=== PATIENT | female | born 1955 | race African-American/Black ===

== ENCOUNTER 2017-09-26 11:46 | Emergency (ER) | payer OTHER ==
[~2017-09-26] VITALS: Ht 162.6 cm; Wt 94.6 kg
[2017-09-26 11:47] VITALS: TEMP 36.5
[2017-09-26] MEDS ORDERED: HYDROmorphone INJ 1 MG/ML SYR IV STA ×2 (12:05→14:57)
[2017-09-26 12:12] VITALS: O2SAT 96; Ht 162.6 cm; Wt 94.6 kg
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
[2017-09-26 12:28] LABS: BASO % 0.2 %; BASO ABS # 0.02 K/uL (0-0.2); EOS % 0.5 %; EOS ABS # 0.05 K/uL (0-0.5); HEMATOCRIT 34.6 % (37-47); IG# 0.02 K/uL (0.00-0.02); LYMPH ABS # 4.31 K/uL (1.2-3.4); MEAN CELL VOLUME 91.1 fL (80-100); MEAN CORPUSCULAR HEMOGLOBIN 28.9 pg (25-34); MEAN CORPUSCULAR HGB CONC 31.8 g/dl (32-36); MEAN PLATELET VOLUME 9.3 fL (7.4-10.4); MONO ABS # 0.82 K/uL (0.11-0.59); NEUT % 49.1 %; NEUT ABS # 5.03 K/uL (1.4-6.5); PLATELET COUNT 211 K/uL (130-400); RED CELL DISTRIBUTION WIDTH CV 15.3 % (11.5-14.5); RED CELL DISTRIBUTION WIDTH SD 51.1 fL (36.4-46.3); WHITE BLOOD COUNT 10.25 K/uL (4.8-10.8)
[2017-09-26 12:38] LABS: PTT PATIENT 24.5 SECONDS (21.0-31.0)
[2017-09-26 12:56] LABS: ALBUMIN 3.3 gm/dl (3.4-5.0); ALKALINE PHOSPHATASE 111 U/L (45-117); ALT/SGPT 17 U/L (12-78); AST/SGOT 15 U/L (15-37); BLOOD UREA NITROGEN 11 mg/dl (7-18); CALCIUM 8.5 mg/dl (8.5-10.1); CARBON DIOXIDE 27 mmol/L (21-32); CREATININE 0.96 mg/dl (0.60-1.20); GLUCOSE 103 mg/dl (70-99); POTASSIUM 3.6 mmol/L (3.5-5.1); SODIUM 140 mmol/L (136-145); TOTAL PROTEIN 7.3 gm/dl (6.4-8.2)
[2017-09-26] MEDS ORDERED: TRIA1SPR4 NAE (12:56)
[2017-09-26] MEDS ORDERED: RIVA1TAB4 PO (12:56)
[2017-09-26] MEDS ORDERED: NRN800 PO (12:56)
[2017-09-26] MEDS ORDERED: [UNRECOGNIZED DRUG - CODE] PO (12:56)
[2017-09-26] MEDS ORDERED: MAGN500T15 PO (12:56)
[2017-09-26] MEDS ORDERED: CHOL100010 PO (12:56)
[2017-09-26] MEDS ORDERED: BENA20TA14 PO (12:56)
[2017-09-26] MEDS ORDERED: HYDR-3714 PO (12:56)
[2017-09-26] MEDS ORDERED: VNTHFA/IN INH (12:56)
[2017-09-26] MEDS ORDERED: ADAL1KIT INJ (12:56)
[2017-09-26] MEDS ORDERED: AMLO10TA3 PO (12:56)
[2017-09-26] MEDS ORDERED: CYNI1000 INJ (12:56)
[2017-09-26] MEDS ORDERED: CYM/30 PO (12:56)
[2017-09-26] MEDS ORDERED: GLC/500 PO (12:56)
[2017-09-26] MEDS ORDERED: DULO60CA44 PO (12:56)
[2017-09-26] MEDS ORDERED: B-COTAB53 PO (12:56)
[2017-09-26] MEDS ORDERED: ONDA4TAB46 PO (12:56)
[2017-09-26] MEDS ORDERED: NALO1TAB2 PO (12:56)
[2017-09-26] MEDS ORDERED: POTA99TA PO (12:56)
[2017-09-26] MEDS ORDERED: CYCL5TAB PO (12:56)
--- NOTE | 2017-09-26 13:30 | DIAGNOSTIC IMAGING REPORT ---
R VENOUS DOPP LOWER EXT UNILAT CLINICAL HISTORY: EVALUATE FOR DVT pain. Edema. TECHNIQUE: Venous Doppler COMPARISON STUDY: None FINDINGS: No evidence for deep venous thrombosis. Venous flow is unremarkable. There is a 4 x 1 x 5 cm complex collection within the right inguinal region consistent with the patient's prior recent operative hernia repair. IMPRESSION: 1. Study is negative for deep venous thrombosis. 2. linear hematoma right inguinal region on a postoperative basis. The above report was generated using voice recognition software. It may contain grammatical, syntax or spelling errors. Electronically signed by: Jonathan Benedict M.D. 09/26/2017 1:29 PM Dictated Date/Time: 09/26/2017 1:26 PM
[2017-09-26] MEDS ORDERED: OPTIRAY 320 IV PRN (13:45)
--- NOTE | 2017-09-26 14:45 | DIAGNOSTIC IMAGING REPORT ---
ABD/PELVIS IV CONTRAST ONLY CLINICAL HISTORY: 62 years-old Female presenting with RLQ pain into thigh s/p hernia repair yesterday. TECHNIQUE: Multidetector CT of the abdomen and pelvis was performed after the administration of intravenous contrast. IV contrast: 90 mL of Optiray 320. A dose lowering technique was used consistent with the principles of ALARA (as low as reasonably achievable). COMPARISON: None. CT DOSE (mGy.cm): The estimated cumulative dose is 1098.90 mGy.cm. 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 IVC filter at the level of L4. Lung bases: Minimal basilar opacities, likely atelectasis. Normal heart size. Coronary artery and aortic valve calcification. No pericardial or pleural effusion. Liver: Normal morphology. No liver lesion. Patent hepatic vasculature. Biliary: Mild biliary ductal prominence likely a reservoir effect in the post cholecystectomy state. Gallbladder surgically absent. Pancreas: Mild parenchymal atrophy. Spleen: Normal. Adrenal glands: Normal. Kidneys and ureters: Normal. No hydronephrosis. Bladder: Normal. Pelvic organs: Uterus surgically absent. Bowel: Postsurgical changes of appendectomy. No bowel obstruction. Peritoneal cavity: No free fluid or intraperitoneal gas. Lymph nodes: No enlarged lymph nodes in the abdomen or pelvis. Vasculature: IVC patent with an infrarenal IVC filter in place. Atherosclerosis of the normal caliber abdominal aorta. Abdominal wall: Extensive postsurgical changes in the right inguinal region with gas and fluid tracking along the superficial aspect of the abdominal wall musculature and proximal thigh muscles. This may be within the expected range of postsurgical change given the recent postoperative setting. Additional gas tracks to the lateral aspect of the proximal thigh overlying the right gluteus brian (series 3 image 368). The largest fluid pocket superficial to the common femoral vessels measures 3.6 x 1.6 cm. This inflammatory change does not track into the retroperitoneum. Musculoskeletal: Degenerative changes of the spine. IMPRESSION: 1. Extensive postsurgical changes in the right inguinal region consistent with recent hernia repair. Extensive gas and fluid may be within the expected range of normal given the intervention yesterday. No rim-enhancing collection to suggest abscess, however the largest fluid pocket is 3.6 cm in diameter and may represent a seroma. Superficial tracking gas may relate to the incision site. Inflammation does not track into the retroperitoneum. Close clinical follow-up recommended. Electronically signed by: Pelon Delgadillo M.D. 09/26/2017 2:43 PM Dictated Date/Time: 09/26/2017 2:34 PM
[2017-09-26] MEDS ORDERED: OXYC-90 PO (15:27)
[2017-09-26] MEDS ORDERED: OXYCODONE IR HOME PACK PO ONE (15:30)
[2017-09-26 16:27] VITALS: BP 121/82; PULSE 66; O2SAT 94
== END 2017-09-26 16:27 | disposition home or self-care (01) ==
LOC: EDBD 11:46 → C.EDC 11:47
DX: M79.651 Pain in right thigh (principal); Z98.890 Other specified postprocedural states